=== PATIENT | female | born 1995 | race Caucasian/White ===

== ENCOUNTER 2017-03-18 17:26 | Emergency (ER) | payer MEDICAID ==
[~2017-03-18 17:26] MED LIST: ADIPEX-P37.5 M PO; BACTRIM DS TAB1 EAC1 PO; CIPRO500 MG PO; COMPAZINE10 MG PO; DEPO SHOT; IBUPROFEN800 MG PO; LAMICTAL150 MG PO; MOTRIN600 MG PO; NORCO 5/325 TAB1 TAB PO; NORCO 5/3251 TA2 PO; PERCOCET 5/3251 TAB PO; PHENERGAN25 M1 PO; PRENATAL CAPLE1 EACH PO; PRENATAL1 EACH PO; ZOLOFT50 MG PO
[2017-03-18] MEDS ORDERED: BIRTH CONTROL PO (17:54)
[2017-03-18 18:11] LABS: BASO % 0.2 % (0-2); EOS % 2.8 % (0-7); EOSINOPHIL ABSOLUTE COUNT 0.3 tho/cmm (0.0-0.7); HCT-HEMATOCRIT 44.3 % (34.0-49.0); HGB-HEMOGLOBIN 14.8 gm/dl (12.0-15.5); IMMATURE GRANULOCYTES ABSOLUTE 0.02 tho/cmm (0-0.03); IMMATURE GRANULOCYTES PERCENT 0.2 % (0-0.3); MCH (MEAN CORPUSCULAR HGB) 29.2 pg (28.0-32.0); MCHC MEAN CORPUSCULAR HGB CONC 33.4 % (32.0-36.0); MCV (MEAN CELL VOLUME) 87.4 fl (82.0-96.0); MEAN PLATELET VOLUME 11.9 cmc (9.4-12.4); MONO % 5.4 % (0-12); MONOCYTE ABSOLUTE COUNT 0.7 tho/cmm (0.0-1.2); NEUTROPHIL ABSOLUTE COUNT 8.3 tho/cmm (1.6-8.0); NEUTROPHIL-AUTOMATED 8.3 tho/cmm (1.6-8.0); NEUTROPHILS % 67.4 % (40-80); PLATELET COUNT 236 tho/cmm (150-450); RED BLOOD COUNT 5.07 mil/cmm (4.00-5.20); RED CELL DISTRIBUTION WIDTH 13.7 % (12.4-16.4); WHITE BLOOD COUNT 12.3 tho/cmm (4.0-10.0)
[2017-03-18 18:25] LABS: PREGNANCY-SERUM NEGATIVE (NEGATIVE)
[2017-03-18 18:27] LABS: ALB/GLOB RATIO 0.9 (0.8-2.0); ALBUMIN 3.6 g/dl (3.5-5.0); ALKALINE PHOSPHATASE 78 U/L (33-138); ALT/SGPT 39 U/L (12-78); ANION GAP 11 mmol/L (0-20); AST/SGOT 20 U/L (10-40); BILIRUBIN,TOTAL 0.1 mg/dl (0-1.5); BLOOD UREA NITROGEN 9 mg/dl (6-24); C-REACTIVE PROTEIN 0.4 mg/dl (0-0.9); CALCIUM 8.7 mg/dl (8.5-10.5); CARBON DIOXIDE-VENOUS 25 mmol/L (22-32); CHLORIDE 108 mmol/l (96-110); GLUCOSE 84 mg/dL (70-110); LIPASE 105 U/L (73-393); POTASSIUM 3.9 mmol/L (3.7-5.1); SODIUM 140 mmol/L (135-145); eGFR VALUE FOR BLACK >90 mL/Min
[2017-03-18 19:05] LABS: URINE BILIRUBIN NEGATIVE (NEG); URINE BLOOD NEGATIVE (NEG); URINE GLUCOSE (UA) NEGATIVE (NEG); URINE KETONE NEGATIVE (NEG); URINE LEUKOCYTE ESTERASE POSITIVE (NEG); URINE NITRITE NEGATIVE (NEG); URINE PROTEIN NEGATIVE (NEG); URINE SPECIFIC GRAVITY 1.015 (1.003-1.030)
[2017-03-18 19:08] LABS: URINE APPEARANCE HAZY; URINE COLOR YELLOW
[2017-03-18 19:13] LABS: URINE RBC RARE /[HPF] (0-5)
[2017-03-18] MEDS ORDERED: IBUPROFEN600 M1 PO (20:55)
[2017-03-18] MEDS ORDERED: NORCO 5-325 TA1 EACH PO (20:55)
[2017-03-19] MEDS ORDERED: NORCO 5-325 TA1 EACH PO (16:17)
[2017-03-19] MEDS ORDERED: MONONESSA 28 T1 EACH PO (16:18)
[2017-06-11] MEDS ORDERED: ULTRAM50 M1 PO (16:38)
== END 2017-03-18 21:02 ==
LOC: EDMED 17:26
PROVIDERS: Emergency Medicine
DX: N83.201 Unspecified ovarian cyst, right side (principal); F17.200 Nicotine dependence, unspecified, uncomplicated; Z90.49 Acquired absence of other specified parts of digestive tract
CPT/HCPCS: J1170; J1885; J2405; J7030; Q9967

== ENCOUNTER 2017-06-08 01:32 | Emergency (ER) | payer SELFPAY ==
[~2017-06-08] VITALS: Ht 157.5 cm; Wt 89.4 kg
[~2017-06-08 01:32] MED LIST changes: +BIRTH CONTROL PO; +IBUPROFEN600 M1 PO; +MONONESSA 28 T1 EACH PO; +NORCO 5-325 TA1 EACH PO
[2017-06-08] MEDS ORDERED: TRAMADOL HCL50 M2 PO (03:07)
[2017-06-11] MEDS ORDERED: ULTRAM50 M1 PO (16:38)
== END 2017-06-08 03:23 ==
LOC: EDMED 01:32
DX: M25.561 Pain in right knee (principal)